=== PATIENT | male | born 1975 | race Caucasian/White ===

== ENCOUNTER → 2018-04-15 10:33 | Outpatient (CLI) | payer OTHER, SELFPAY ==
--- NOTE | 2018-04-15 | DI.US.S_ITS ---
PROCEDURE: US ABDOMEN LIMITED INDICATIONS: SOFT TISSUE BACK MASS TECHNIQUE: Real-time focused scanning was performed of the abdomen, with image documentation. COMPARISON: [facility], US, US EXTREMITY NONVASC UPPER LT, 04/15/2018, 11:11. [facility], US, US EXTREMELY NONVASC UPPER RT, 04/15/2018, 11:08. FINDINGS: Limited sonographic images of the abdomen are identified. In the right anterolateral midabdomen there is a 20 x 10 x 16 mm focus of hyper echogenicity. In the right lateral midabdomen there is a 12 x 8 x 14 mm focus of hyper echogenicity. In the right posterior back adjacent to the lower rib cage there is a 21 x 6 x 11 mm focus of hyper echogenicity. These all are superficial predominantly within the subcutaneous fat. There is no increased vascular flow. IMPRESSION: Multiple superficial hyperechoic foci most suggestive of lipomas. Dictated by: Mera English M.D. on 04/15/2018 at 13:24 Approved by: Mera English M.D. on 04/15/2018 at 13:25
--- NOTE | 2018-04-15 | DI.US.S_ITS ---
PROCEDURE: US EXTREMITY NONVASC UPPER LT INDICATIONS: MASS LEFT FOREARM TECHNIQUE: Real-time scanning was performed of the left posterior mid forearm soft tissue area of palpable mass, with image documentation. COMPARISON: [facility], US, US EXTREMELY NONVASC UPPER RT, 04/15/2018, 11:08. FINDINGS: There is a nonspecific isoechoic mass measuring 0.4 x 1.8 x 1.8 cm without visualized internal blood flow corresponding to the area of current clinical concern at the posterior mid left forearm. IMPRESSION: Reported family history of lymphoma. The ovoid soft tissue structure corresponding to the area of current clinical concern at the posterior left mid forearm region has a nonspecific sonographic appearance, and could be further assessed if clinically desired by MR scanning without and with contrast. Alternatively it could be followed by clinical examination or sequential followup ultrasound scanning. Dictated by: Jesus Escobar M.D. on 04/15/2018 at 12:18 Approved by: Jesus Escobar M.D. on 04/15/2018 at 12:26
--- NOTE | 2018-04-15 | DI.US.S_ITS ---
PROCEDURE: US EXTREMELY NONVASC UPPER RT INDICATIONS: MASS RIGHT FOREARM TECHNIQUE: Real-time scanning was performed of the palpable mass posterior mid right forearm, with image documentation. COMPARISON: None. FINDINGS: There is in ovoid 1.5 x 0.5 x 1.3 cm homogeneous mass without visualized internal blood flow at the posterior mid right forearm, in the area of current clinical concern. This is relatively hyperechoic, and may represent a lipoma. IMPRESSION: Ovoid hyperechoic mass measuring up to 0.5 x 1.3 x 1.5 cm corresponding to the area of current clinical concern. There is a reported family history of lymphoma. This structure could be more accurately assessed by MR scanning without and with contrast which would assist in determining whether a lipoma is the underlying cause. Dictated by: Jesus Escobar M.D. on 04/15/2018 at 12:17 Approved by: Jesus Escobar M.D. on 04/15/2018 at 12:18
== END ==
PROVIDERS: Visit Provider Physician Assistant Medical
DX: R22.2 Localized swelling, mass and lump, trunk (principal); R22.33 Localized swelling, mass and lump, upper limb, bilateral; Z80.7 Family history of other malignant neoplasms of lymphoid, hematopoietic and related tissues
CPT/HCPCS: 76705; 76882

== ENCOUNTER → 2022-02-12 07:01 | Outpatient (CLI) | payer OTHER, SELFPAY ==
--- NOTE | 2022-02-12 | DI.US.S_ITS ---
PROCEDURE: US ABDOMEN LIMITED INDICATIONS: SHARP PAINS LLQ TECHNIQUE: Real-time focused scanning was performed of the abdomen, with image documentation. Color Doppler was also utilized. COMPARISON: [facility], , US ABDOMEN LIMITED, 04/15/2018, 11:01. FINDINGS: Scanning is performed at the area of clinical concern. Valsalva maneuver was also performed. No findings of hernia can be seen. No masses or enlarged lymph nodes are seen. IMPRESSION: Negative study, without findings of hernia, masses, or enlarged lymph nodes at the area of clinical concern. Dictated by: Kb Saucedo M.D. on 02/12/2022 at 8:03 Approved by: Kb Saucedo M.D. on 02/12/2022 at 8:04
== END ==
PROVIDERS: PCP Physician Assistant Medical; Referring Provider Nurse Practitioner; Visit Provider Nurse Practitioner
DX: K40.90 Unilateral inguinal hernia, without obstruction or gangrene, not specified as recurrent (principal); R10.9 Unspecified abdominal pain
CPT/HCPCS: 76705

== ENCOUNTER → 2023-04-29 13:30 | Day surgery (SDC) | payer OTHER, SELFPAY ==
--- NOTE | 2023-04-29 | PATH_ITS ---
[facility] Accession Number: [id number] No. of containers..01 Tissue . 01 Material submitted: . sigmoid colon - SIGMOID COLON POLYP . 01 Diagnosis: Sigmoid Colon, Polypectomy: Hyperplastic polyp. MRV 05/02/2023 1704 Local . 01 Electronically signed: . Aduelia Boyce MD, Pathologist NPI- [id number] . 01 Gross description: . SIGMOID COLON POLYP: Received in formalin is 1 fragment(s) of khan, soft tissue measuring 0.5 x 0.2 x 0.1 cm submitted entirely in 1 cassette(s) /LISSET 05/01/2023 2231 Local . 01 Pathologist provided ICD-10: K63.5 . 01 CPT . 267535 Specimen Comment: A courtesy copy of this report has been sent to [phone] Performed at: 01 [facility] [address] [place] [address], [place], [place] [id number] MD Gal Lugo MD Phone: [phone]
[2023-04-29 13:44] VITALS: BMI 32.1
[2023-04-29 14:01] VITALS: BP 124/76; PULSE 87; RESP 21; TEMP 36.4; O2SAT 95
[2023-04-29] MEDS: LACTATED RINGERS 1,000 ML 200 ML IV (14:05)
[2023-04-29 14:11] VITALS: BP 124/72; PULSE 80; RESP 16; TEMP 36.2; O2SAT 90
--- NOTE | 2023-04-29 14:55 | P.HP_ITS ---
History of Present Illness History of Present Illness Date Patient Seen: 04/29/23 Time Patient Seen: 14:55 Chief complaint: Screening Colonoscopy Narrative: The patient presents for colorectal screening. They have never had any previous examination for such. No personal or family history of colon cancer. On further history denies any recent gastrointestinal symptoms. No nausea, vomiting, abdominal pain, loss of appetite, unexplained weight loss, change in bowel habits, or blood per rectum. [facility] Social History household members: spouse Smoking Status: Current every day smoker alcohol intake: current Meds Home Medications and Allergies Home Medications Medication Instructions Recorded Confirmed Type sodium,potassium,mag sulfates 17.5 See Rx Instructions PO .COMPLEX 04/14/23 Rx gram-3.13 gram-1.6 gram oral soln #354 mL (Suprep Bowel Prep Kit) tadalafil 5 mg tablet 10 mg PO DAILY 04/29/23 04/29/23 History Allergies Allergy/AdvReac Type Severity Reaction Status Date / Time No Known Drug Allergies Allergy Verified 04/29/23 13:40 Exam Vital Signs (past 8 hours): - 04/29/23 14:01 Temperature 97.6 F Pulse Rate 87 Respiratory Rate 21 Blood Pressure 124/76 Pulse Oximetry 95 Oxygen Delivery Method Room Air Oxygen Delivery Method Room Air Narrative Exam Narrative: General adult man alert oriented no acute distress Chest nonlabored respiration Abdomen soft nontender nondistended Assessment & Plan Assessment & Plan narrative: The patient requires colorectal screening and colonoscopy is recommended. Technical details were discussed. Risks, benefits, alternatives explained. Risks including but not limited to myocardial infarction, aspiration, bleeding, pain, missed lesion, incomplete examination, need for further radiographic studies, colonic perforation, and need for major abdominal surgery were discussed. All questions were answered to their satisfaction, and they are in agreement with this plan.
--- NOTE | 2023-04-29 14:56 | PM.OP.COLON ---
Operative Date/Time/Diagnoses Date of procedure: 04/29/23 Time of procedure: 14:56 Pre-op diagnosis: Colorectal screening Post-op diagnosis: same Procedure & Clinicians Study performed: Colonoscopy Same procedure as scheduled: Yes Indications: Colorectal screening Surgeon: Rashawn Hernandes Procedure Notes Procedure in detail: The history and physical was performed/updated and the patient is ASA class is 2. The procedure was discussed in detail with the patient. Potential risks complications including infection, bleeding, missed diagnosis, perforation, need for surgery, and were explained. Their questions were answered and informed consent was obtained. Patient was brought to the procedure room and placed standard monitoring equipment. The patient's vital signs were monitored continuously throughout the entire procedure. Prior to starting time-out was performed. The patient was placed in the left lateral recumbent position. Procedural sedation was administered by anesthesia. Examination began with a thorough inspection of the perianal area there was no evidence of fissures, fistulae, external hemorrhoids or cutaneous malignancy. The colonoscopy scope was then placed into the anal canal and was advanced to the cecum, which was identified by the ileocecal valve, the appendiceal orifice and the confluence of the taenia. The scope was then slowly withdrawn examining colon thoroughly in all directions, irrigating it of any residual stool. Within the sigmoid colon there was a 5 mm polyp which was entirely removed with biopsy forceps. The remainder of the colon was unremarkable. The patient tolerated the procedure well. They will be discharged once criteria are met. The prep was of good/excellent quality. The withdrawl time was 6 minutes. Specimen(s): other (Sigmoid colon polyp) Impression: Colonic polyp x1 Post-procedure Plan for aftercare: Follow-up is dependent on pathology findings Disposition: same day surgery
[2023-04-29 15:17] VITALS: BP 115/72; PULSE 82; RESP 20; O2SAT 94
[2023-04-29 15:21] VITALS: BP 103/63; PULSE 87; RESP 16; O2SAT 93
[2023-04-29 15:32] VITALS: BP 112/62; PULSE 80; RESP 16; TEMP 36.6; O2SAT 94
== END | disposition home or self-care (01) ==
PROVIDERS: PCP Physician Assistant Medical; Referring Provider Surgery; Visit Provider Surgery
PROC: 0DJD8ZZ Inspection of Lower Intestinal Tract, Via Natural or Artificial Opening Endoscopic (ICD-10-PCS; CPT 45378; principal; 2023-04-29 14:45)
DX: Z12.11 Encounter for screening for malignant neoplasm of colon (principal); K63.5 Polyp of colon
CPT/HCPCS: 45380; J2704; J3010